=== PATIENT | female | born 1935 | race Hispanic/Latino ===

== ENCOUNTER 2016-09-04 08:31 | Emergency (ER) | payer MEDICARE ==
[2016-09-04] MEDS ORDERED: FLEXERIL PO ONE (10:56)
[2016-09-04] MEDS ORDERED: TORADOL IM ONE (10:56)
[2016-09-04] MEDS ORDERED: NORCO 7.5/325 PO ONE (10:56)
[2016-09-04] MEDS ORDERED: CATAPRES PO ONE (10:58)
--- NOTE | 2016-09-04 11:34 | XRay Report ---
LEFT KNEE RADIOGRAPHS INDICATION: Pain. COMPARISON: None similar. FINDINGS: AP, lateral and oblique left knee radiographs demonstrate slight degenerative prominence of the tibial spines. Mild to moderate medial knee compartment narrowing also suspected. Intact overall articulation. Slight superior patellar enthesophyte. No large suprapatellar effusion suspected. CONCLUSION: Left knee osteoarthrosis without acute bony abnormality. Please correlate. Thank you for the opportunity to participate in this patient's care.
--- NOTE | 2016-09-04 15:06 | XRay Report ---
LEFT FEMUR: History: Pain. AP and lateral views of the femur demonstrate normal mineralization and contours for this patient's age. No destructive changes are noted and the adjacent soft tissues are normal. IMPRESSION: Normal left femur.
--- NOTE | 2016-09-04 15:06 | XRay Report ---
LEFT HIP, 2 VIEWS History: Left hip pain. Findings: There is normal articulation at the left hip. No evidence for fracture, dislocation or bone lesion. Previous internal fixation of the pubic symphysis is noted. Impression: Unremarkable left hip.
[2016-09-04 15:26] VITALS: BP 161/84
--- NOTE | 2016-09-04 17:20 | Emergency Department Report ---
Entered by JOLIE PINTO, acting as scribe for GUERRERO FLOYD PA. ED Extremity Problem HPI - General Chief complaint: Extremity Problem,Nontraumatic Stated complaint: LEFT KNEE PAIN Time Seen by Provider: 09/04/16 10:53 Source: patient, family Mode of arrival: Wheelchair Limitations: No Limitations - History of Present Illness Initial comments: 81 y/o female with PMHx of HTN and DM presents to the ED for evaluation of progressive left leg pain that started 1 week ago, worsening since yesterday. Patient states that she was grocery shopping and she started to feel pain in her left knee with pain radiating down to her toes. She also reports some calf pain. According to her family she the pain is worse with weight bearing. Up until this morning she was able to ambulate, but today she requires a wheelchair. She denies hip pain. Patent denies taking HTN medication today. Patient denies hx of DVT, renal failure, trauma, recent travel or recent surgery. MD Complaint: extremity pain (left knee pain) Onset/Timin -: week(s) (worse in the last day) Location: left (knee pain), knee (left) -: Yes arthralgia, No fever, No associated dyspnea, No associated chest pain Radiation: distal Severity scale (0 -10): 10 Quality: aching, sharp Consistency: constant Improves with: nothing Worsens with: weight bearing, walking Associated Symptoms: denies other symptoms. denies: chest pain, shortness of breath, fever, myalgias, arthralgias, rash - Related Data Home Medications Medication Instructions Recorded Confirmed Last Taken Diltiazem HCl [Diltiazem ER] 300 mg PO QDAY 08/01/14 08/17/14 08/17/14 Ergocalciferol [Vitamin D2] 1 cap PO QWEEK 08/01/14 08/17/14 08/17/14 Hydrochlorothiazide [HCTZ] 12.5 mg PO QDAY 08/01/14 08/17/14 08/17/14 Latanoprost 0.005% [Xalatan 0.005%] 1 drop OP QPM 08/01/14 08/17/14 08/17/14 Losartan [Cozaar] 100 mg PO QDAY 08/01/14 08/17/14 08/17/14 Previous Rx's Medication Instructions Recorded Last Taken Type Omeprazole Magnesium [PriLOSEC Otc] 20 mg PO BID #30 tab 08/20/14 Unknown Rx Amoxicillin/K Clav Tab [Augmentin 1 each PO Q12HR #6 tablet 02/29/16 Unknown Rx 500 MG TAB] HYDROcodone/APAP 10-325 [Walters 1 each PO Q4H PRN #30 tablet 02/29/16 Unknown Rx 10-325 mg TAB] Potassium Chloride [K-Dur] 20 meq PO QDAY #30 tablet 02/29/16 Unknown Rx chlordiazePOXIDE/CLIDINIUM [Librax 1 cap PO ACHS #120 capsule 02/29/16 Unknown Rx 5-2.5 mg] Ketorolac [Toradol] 10 mg PO Q6H PRN #40 tablet 09/04/16 Unknown Rx Allergies Allergy/AdvReac Type Severity Reaction Status Date / Time No Known Allergies Allergy Unverified 08/17/14 14:59 ED Review of Systems Comment: All other systems reviewed and negative Constitutional: no symptoms reported. denies: chills, fever, weakness Eyes: denies: eye pain, vision change ENT: denies: ear pain, throat pain Respiratory: no symptoms reported. denies: cough, shortness of breath, wheezing Cardiovascular: denies: chest pain, palpitations Endocrine: denies: excessive sweating Gastrointestinal: denies: abdominal pain, nausea, vomiting Genitourinary: denies: urgency, dysuria Musculoskeletal: joint swelling, arthralgia, other (left knee pain). denies: back pain, myalgia Skin: denies: rash, lesions Neurological: denies: headache, weakness, numbness, paresthesias, confusion, vertigo Psychiatric: denies: anxiety, depression Hematological/Lymphatic: denies: easy bleeding ED Past Medical Hx - Past Medical History Previous Medical History?: Yes Hx Hypertension: Yes (FOR 25 YRS, DR. WILLIS FULTON- PCP, DR. UPTON- [facility]) Hx Diabetes: Yes (FOR 15 YRS, NO MEDS) Hx Renal Disease: No Hx HIV: No Additional medical history: breast cancer removed. Umbilical hernia. Right inguinal hernia - Surgical History Hx Appendectomy: Yes Hx Breast Surgery: Yes (LEFT BREAST BX IN 1992, LEFT BREAST CORE BX 07-17-14) Additional Surgical History: masectomy - Social History Smoking Status: Never Smoker Substance Use Type: None - Medications Home Medications: Home Medications Medication Instructions Recorded Confirmed Last Taken Type Diltiazem HCl [Diltiazem ER] 300 mg PO QDAY 08/01/14 08/17/14 08/17/14 History Ergocalciferol [Vitamin D2] 1 cap PO QWEEK 08/01/14 08/17/14 08/17/14 History Hydrochlorothiazide [HCTZ] 12.5 mg PO QDAY 08/01/14 08/17/14 08/17/14 History Latanoprost 0.005% [Xalatan 0.005%] 1 drop OP QPM 08/01/14 08/17/14 08/17/14 History Losartan [Cozaar] 100 mg PO QDAY 08/01/14 08/17/14 08/17/14 History Omeprazole Magnesium [PriLOSEC Otc] 20 mg PO BID #30 tab 08/20/14 Unknown Rx Amoxicillin/K Clav Tab [Augmentin 1 each PO Q12HR #6 tablet 02/29/16 Unknown Rx 500 MG TAB] HYDROcodone/APAP 10-325 [Walters 1 each PO Q4H PRN #30 tablet 02/29/16 Unknown Rx 10-325 mg TAB] Potassium Chloride [K-Dur] 20 meq PO QDAY #30 tablet 02/29/16 Unknown Rx chlordiazePOXIDE/CLIDINIUM [Librax 1 cap PO ACHS #120 capsule 02/29/16 Unknown Rx 5-2.5 mg] Ketorolac [Toradol] 10 mg PO Q6H PRN #40 tablet 09/04/16 Unknown Rx ED Physical Exam - General Limitations: No Limitations General appearance: alert, in no apparent distress - Head Head exam: Present: atraumatic, normocephalic - Eye Eye exam: Present: normal appearance, PERRL, EOMI - ENT ENT exam: Present: normal exam, normal orophraynx, mucous membranes moist, TM's normal bilaterally, normal external ear exam - Neck Neck exam: Present: normal inspection, full ROM. Absent: tenderness, meningismus, lymphadenopathy - Respiratory Respiratory exam: Present: normal lung sounds bilaterally. Absent: respiratory distress, wheezes, rales, rhonchi - Cardiovascular Cardiovascular Exam: Present: regular rate, normal rhythm, normal heart sounds. Absent: systolic murmur, diastolic murmur, rubs, gallop - GI/Abdominal GI/Abdominal exam: Present: soft, normal bowel sounds. Absent: distended, tenderness, guarding, rebound, rigid - Extremities Exam Extremities exam: Present: normal inspection, full ROM, tenderness (left knee), normal capillary refill - Expanded Lower Extremity Exam Left Hip exam: Present: normal inspection, full ROM. Absent: tenderness, swelling Upper Leg exam: Present: normal inspection. Absent: tenderness, swelling Knee exam: Present: tenderness (tenderness in left knee), swelling. Absent: full ROM (limited ROM secondary to pain), abrasion, laceration, deformity, dislocation, erythema Lower Leg exam: Present: normal inspection, full ROM. Absent: tenderness, swelling Ankle exam: Present: normal inspection, full ROM. Absent: tenderness, swelling , abrasion, laceration, ecchymosis, erythema Foot/Toe exam: Present: normal inspection, full ROM. Absent: tenderness, swelling, abrasion, laceration, ecchymosis Neuro vascular tendon exam: Present: no vascular compromise (bilateral dorsalis pedis pulses intact). Absent: pulse deficit, motor deficit, sensory deficit, extremity cold to touch, decreased fine/light touch Gait: Positive: observed and limited by pain, unable to bear weight - Back Exam Back exam: Present: normal inspection, full ROM. Absent: tenderness - Neurological Exam Neurological exam: Present: alert, oriented X3 - Psychiatric Psychiatric exam: Present: normal affect, normal mood - Skin Skin exam: Present: warm, dry, intact, normal color. Absent: rash ED Course Vital Signs 09/04/16 09/04/16 09/04/16 08:37 11:05 15:25 Temperature 98.6 F Pulse Rate 88 77 96 H Respiratory 18 18 Rate Blood Pressure 201/82 Blood Pressure 163/77 161/84 [Right] O2 Sat by Pulse 99 100 Oximetry ED Medical Decision Making - Radiology Data Radiology results: report reviewed RACH PERDOMOYL CHRISTY Female : 1935 [facility]# [id number] 09/04/16 12:20 - Radiology Dept. Note by NAIMA JOHN Acct Num: [id number] : 1935 Patient Age: 81 VASCULAR LAB PRELIMINARY REPORT LLE VENOUS DOPPLER COMPLETED NO EVIDENCE OF DVT/SVT NOTED IN VESSELS/SEGMENTS VISUALIZED SOFT TISSUE CHANGES NOTED IN LT POP FOSSA PROBABLE MASSEY'S CYST Initialized on 09/04/16 12:20 - END OF NOTE xr left knee: left knee osteoarthritis without bony abnormalities. - Medical Decision Making 81 year old female presents to ED with left knee pain x1 week worsening today. patient states she is unable to bear weight on left leg. U/S positive for bakers cyst and xray positive for arthritis. patient is stable, neurologically intact and in no acute distress. patient will be given PT follow up and walker for ambulating assistance. patient has daughter at bedside to help ambulate as well. ED Disposition Clinical Impression: Osteoarthritis Qualifiers: Osteoarthritis location: knee Osteoarthritis type: unspecified Laterality: left Qualified Code(s): M17.12 - Unilateral primary osteoarthritis, left knee Massey cyst Qualifiers: Laterality: left Qualified Code(s): M71.22 - Synovial cyst of popliteal space [ Massey], left knee Disposition: - TO HOME OR SELFCARE Is pt being admited?: No Does the pt Need Aspirin: No Condition: Stable Instructions: Osteoarthritis (ED), Massey's Cyst (ED) Prescriptions: Ketorolac [Toradol] 10 mg PO Q6H PRN #40 tablet PRN Reason: Pain Referrals: PRIMARY CARE,MD [Primary Care Provider] - 3-5 Days This documentation as recorded by the BLAIR wharton PEARL,accurately reflects the service I personally performed and the decisions made by ,GUERRERO FLOYD PA.
--- NOTE | 2016-09-05 07:30 | Vascular Lab Report ---
Left Lower Extremity Venous Duplex Study: Reason for Exam: Pain of the left lower extremity. Comments on the Right: A limited duplex study was done of the proximal veins of the right lower extremity. All veins visualized are freely compressible without evidence of internal echogenicity. Flow is spontaneous and phasic throughout. No evidence of acute or chronic thrombus is seen in any of the vessels visualized. Comments on the Left: All veins visualized are freely compressible without evidence of internal echogenicity. Flow is spontaneous and phasic throughout. No evidence of acute or chronic thrombus is seen in any of the vessels visualized. Soft tissue changes in the left popliteal fossa may be consistent with a Massey's cyst Impression: No evidence of acute or chronic deep venous thrombosis in the left lower extremity.
== END 2016-09-04 17:05 | disposition home or self-care (01) ==
LOC: ED 08:31
DX: M17.12 Unilateral primary osteoarthritis, left knee (principal); M71.22 Synovial cyst of popliteal space [Baker], left knee; I10 Essential (primary) hypertension; E11.9 Type 2 diabetes mellitus without complications; Z85.3 Personal history of malignant neoplasm of breast
CPT/HCPCS: 73502; 73552; 73562; 93971; 96372; 99284; J1885